=== PATIENT | male | born 2000 | race African-American/Black ===

== ENCOUNTER 2022-01-15 20:27 | Emergency (ER) | payer OTHER ==
[~2022-01-15] VITALS: Ht 175.3 cm; Wt 113.4 kg
[2022-01-15 20:27] VITALS: BP 118/81
--- NOTE | 2022-01-15 20:27 | NUR ---
TO BED VIA GURNEY WITH C/O SOB FROM HOME
--- NOTE | 2022-01-15 21:10 | NUR ---
21 YO BIBA WITH C/O SOB, FROM FRIENDS HOME AND LEFT HIS INHALER WITH WHEEZING, HE WAS GIVEN BREATHING TREATMENT ALBUTEROL EN ROUTE, WITH HX OF ASTHMA. ORIN
--- NOTE | 2022-01-15 21:15 | NUR ---
Patient being evaluated by physician at bedside.
[2022-01-15] MEDS ORDERED: DEXAMETHASONE 10 MG/ML VIAL IM ONE (21:25)
[2022-01-15] MEDS ORDERED: IPRATROPIUM 0.02% 0.5 MG/2.5 ML NEBU INH ONE (21:25)
[2022-01-15] MEDS ORDERED: ALBUTEROL 0.083% 2.5 MG/3 ML NEBU INH ONE (21:25)
[2022-01-15] MEDS ORDERED: PRED20TA5 PO (23:35)
[2022-01-15] MEDS ORDERED: ALBU0.0912 IH (23:35)
--- NOTE | 2022-01-16 01:19 | NUR ---
PATIENT ELOPED FROM FACILITY. DISCHARGE INSTRUCTIONS NOT GIVEN TO PATIENT. DR. CRUZ NOTIFIED.
== END 2022-01-15 23:15 | disposition left against medical advice (07) ==
LOC: MED 20:27
DX: J45.901 Unspecified asthma with (acute) exacerbation (principal); R51.9 Headache, unspecified; R42 Dizziness and giddiness; R00.0 Tachycardia, unspecified; F12.90 Cannabis use, unspecified, uncomplicated
CPT/HCPCS: 94640; 96372; 99283; J1100; J7613; J7644